=== PATIENT | female | born 1940 | race Caucasian/White ===

== ENCOUNTER 2024-10-14 00:49 | Inpatient (IN) | payer SELFPAY ==
[~2024-10-14] VITALS: Ht 162.6 cm; Wt 62.3 kg
[2024-10-14] MEDS ORDERED: NS 1,000 ML IV SCH ×2 (01:05)
[2024-10-14 01:25] LABS: BASOPHILS ABSOLUTE AUTO 0.09 K/mm3 (0.00-0.23); BASOPHILS PERCENT AUTO 0 % (0-2); EOSINOPHILS ABSOLUTE AUTO 0.09 K/mm3 (0.00-0.68); EOSINOPHILS PERCENT AUTO 0 % (0-6); Hematocrit 36.3 % (33.0-51.0); Hemoglobin 12.1 g/dL (11.5-16.0); IMMATURE GRAN ABSOLUTE AUTO 0.08 K/mm3 (0.00-0.10); IMMATURE GRAN PERCENT AUTO 0 % (0-1); LYMPHOCYTES ABSOLUTE AUTO 1.59 K/mm3 (0.84-5.20); LYMPHOCYTES PERCENT AUTO 8 % (21-46); MONOCYTES PERCENT AUTO 6 % (4-13); Mean Corpuscular HGB 31.6 pg (26.0-34.0); Mean Corpuscular HGB Conc 33.3 g/dL (31.5-36.5); Mean Corpuscular Volume 95 fL (80-100); Mean Platelet Volume 9.5 fL (9.1-12.4); NEUTROPHILS ABSOLUTE AUTO 16.99 K/mm3 (1.96-9.15); NEUTROPHILS PERCENT AUTO 85 % (41-73); Platelet Count 288 K/mm3 (150-400); RDW Coefficient Variation 13.9 % (11.7-14.2); RDW Standard Deviation 48.3 fL (35.1-46.3); Red Blood Cell Count 3.83 M/mm3 (3.80-5.20); White Blood Cell Count 20.04 K/mm3 (4.00-11.30)
[2024-10-14 01:47] LABS: Source, Urine Clean Catch
[2024-10-14 01:56] LABS: Bilirubin, Urine Neg (Neg); Blood, Urine 2+ (Neg); Glucose Qualitative, Urine Neg (Neg); Ketones, Urine Neg (Neg); Leukocyte Esterase, Urine 3+ (Neg); Nitrite, Urine Neg (Neg); Protein, Urine 2+ (Neg); Specific Gravity, Urine 1.015 (1.003-1.022); Urobilinogen, Urine NORM (Normal)
[2024-10-14 02:00] LABS: Albumin, Blood 3.3 g/dL (3.4-5.0); Albumin/Globulin Ratio 1.1 (0.8-1.8); Bilirubin, Total 0.5 mg/dL (0.1-1.0); Bun/Creatinine Ratio 29.5 (12.0-20.0); Calcium, Blood 8.9 mg/dL (8.5-10.1); Creatinine, Blood 1.49 mg/dL (0.40-1.00); Magnesium, Blood 2.8 mg/dL (1.6-2.4); Potassium, Blood 4.4 mmol/L (3.5-5.5); Total Protein, Blood 6.3 g/dL (6.4-8.2)
[2024-10-14 02:03] LABS: Appearance, Urine Turbid (Clear); Color, Urine Yellow (P-Yellow)
[2024-10-14 02:05] LABS: Bacteria Many /hpf; Red Blood Cells, Urine 0-2 /hpf (0-2); Squamous Epithelial Cells Few /hpf (Few); White Blood Cells, Urine TNTC /hpf (0-5)
[2024-10-14 02:13] LABS: U Amphetamine Screen Not Detected; U Barbituate Screen Not Detected; U Benzodiazapine Screen Not Detected; U Buprenorphine Screen Not Detected; U Cannabinoids Screen Not Detected; U Cocaine Screen Not Detected; U Methadone Screen Not Detected; U Methamphetamine Screen Not Detected; U Opiates Screen Not Detected; U Oxycodone Screen Not Detected; U Phencyclidine Screen Not Detected
[2024-10-14] MEDS ORDERED: CefTRIAXone Sodium 2,000 MG in NS 100 ML IV ONE (02:15)
[2024-10-14] MEDS ORDERED: Loperamide HCl 2 MG Cap PO PRN (04:05)
[2024-10-14 05:17] LABS: BASOPHILS ABSOLUTE AUTO 0.05 K/mm3 (0.00-0.23); BASOPHILS PERCENT AUTO 0 % (0-2); EOSINOPHILS ABSOLUTE AUTO 0.07 K/mm3 (0.00-0.68); EOSINOPHILS PERCENT AUTO 0 % (0-6); Hematocrit 33.9 % (33.0-51.0); Hemoglobin 11.2 g/dL (11.5-16.0); IMMATURE GRAN ABSOLUTE AUTO 0.08 K/mm3 (0.00-0.10); IMMATURE GRAN PERCENT AUTO 1 % (0-1); LYMPHOCYTES ABSOLUTE AUTO 0.51 K/mm3 (0.84-5.20); LYMPHOCYTES PERCENT AUTO 3 % (21-46); MONOCYTES PERCENT AUTO 7 % (4-13); Mean Corpuscular HGB 31.5 pg (26.0-34.0); Mean Corpuscular Volume 96 fL (80-100); Mean Platelet Volume 9.8 fL (9.1-12.4); NEUTROPHILS ABSOLUTE AUTO 14.92 K/mm3 (1.96-9.15); NEUTROPHILS PERCENT AUTO 89 % (41-73); Platelet Count 246 K/mm3 (150-400); RDW Coefficient Variation 13.8 % (11.7-14.2); RDW Standard Deviation 48.7 fL (35.1-46.3); Red Blood Cell Count 3.55 M/mm3 (3.80-5.20); White Blood Cell Count 16.83 K/mm3 (4.00-11.30)
[2024-10-14 05:25] VITALS: BP 136/58
[2024-10-14 05:37] LABS: Bun/Creatinine Ratio 32.2 (12.0-20.0); Creatinine, Blood 1.18 mg/dL (0.40-1.00); Potassium, Blood 4.2 mmol/L (3.5-5.5)
[2024-10-14] MEDS ORDERED: LISI20 PO (05:50)
[2024-10-14] MEDS ORDERED: FUROSEMIDE20 MG PO (05:50)
[2024-10-14] MEDS ORDERED: LEVETIRACETAM50014 PO (05:51)
[2024-10-14] MEDS ORDERED: DILTIAZEM 24HR360 MG PO (05:51)
[2024-10-14] MEDS ORDERED: TAMSULOSIN HCL0.4 M1 PO (05:52)
[2024-10-14] MEDS ORDERED: NEURONTIN300 MG PO (05:53)
[2024-10-14] MEDS ORDERED: MULTI-VITAMIN1 EAC2 PO (05:54)
--- NOTE | 2024-10-14 07:08 | NUR ---
PT ADMITTED TO ROOM 364. PT SLIDE TRANSFERRED TO BED. PT HAS TENDERNESS TO HER ABDOMEN. PERCUSSION TO ABDOMEN DEMONSTRATES HOLLOW SOUNDS THROUGHOUT. PT DENIES BURPING OR FLATUS. HAS HAD LOOSE BM. ORDER RECEIVED FOR STOOL STUDIES. PT'S IN ROOM. PT GOOD HISTORIAN. WILL CONTINUE TO MONITOR PT, AND WILL REPORT OFF TO ONCOMING RN.
[2024-10-14] MEDS ORDERED: NS 250 ML IV PRN (07:50)
[2024-10-14 08:31] VITALS: BP 129/58
[2024-10-14] MEDS ORDERED: Lactobacil 2-S.Thermo-Bifido 1 1 Cap PO SCH (09:00)
[2024-10-14 12:40] LABS: Campylobacter Sp Not Detected (NOT DETECT)
[2024-10-14 12:41] LABS: Adenovirus F 40/41 Not Detected (NOT DETECT); Astrovirus Not Detected (NOT DETECT); Cryptosporidium Not Detected (NOT DETECT); Cyclospora Cayetanensis Not Detected (NOT DETECT); E. Coli O157 Not Detected (NOT DETECT); Entamoeba Histolytica Not Detected (NOT DETECT); Enteroaggregative E. coli-EAEC Not Detected (NOT DETECT); Enteropathogenic E. coli-EPEC Not Detected (NOT DETECT); Enterotoxigenic E. coli-ETEC Not Detected (NOT DETECT); Giardia Lamblia Not Detected (NOT DETECT); Norovirus GI/GII Not Detected (NOT DETECT); Plesiomonas Shigelloides Not Detected (NOT DETECT); Rotavirus A Not Detected (NOT DETECT); Salmonella Sp Not Detected (NOT DETECT); Sapovirus Not Detected (NOT DETECT); Shiga Toxin-prod E. coli-STEC Not Detected (NOT DETECT); Shigella/Enteroin E. coli-EIEC Not Detected (NOT DETECT); Vibrio Cholerae Not Detected (NOT DETECT); Vibrio Sp Not Detected (NOT DETECT); Yersinia Enterocolitica Not Detected (NOT DETECT)
[2024-10-14] MEDS ORDERED: LEVE500 (15:14)
[2024-10-14] MEDS ORDERED: SERT100 (15:14)
[2024-10-14] MEDS ORDERED: MetroNIDAZOLE 500MG/NS 100 ml 100 ML IV SCH (16:08)
[2024-10-14 17:48] VITALS: BP 131/63
--- NOTE | 2024-10-14 17:52 | NUR ---
STOOL RULE OUT CAME BACK NEGATIVE CONTACT ISO CANCELLED.
--- NOTE | 2024-10-14 18:12 | NUR ---
ASSUMED CARE OF PATIENT FROM ROOM 364 TO ROOM 344. ATTEMPTED TO CALL ALANA OF [facility]; NUMBER LISTED STATES "CANNOT BE ALLOCATED." PATIENT SETTLED IN ROOM, SALINE LOCKED, SLEEPING; RESP EVEN AND UNLABORED MOUTH BREATHING SNORING. NO SIGNS OR SYMPTOMS OF DISTRESS. PLAN OF CARE ONGOING.
--- NOTE | 2024-10-14 18:19 | NUR ---
SHIFT SUMMARY PT MOVED TO ROOM 344 FROM 364 AT 1810. THIS RN GAVE REPORT TO JED HAMMONDS. PT A&O TO SELF ONLY, CONFUSED, AND IMPULSIVE. PT ATTEMPTED TO AMB OOB UNSAFELY T/O SHIFT. VSS, VOIDING LOOSE STOOLS, AND DENIED PAIN. GI PANEL PENDING. PT REFUSED BREAKFAST AND LUNCH. ATTEMPT TO CALL AND SON TO NOTIFY UNSUCCESSFUL. PHONE # FOR NOT AVAILABLE AND SON'S # WENT TO . JED HAMMONDS TO ASSUME CARE OF PT.
--- NOTE | 2024-10-14 18:41 | NUR ---
THIS RN NOTIFIED OF PT HAVING 2-3 SHADES DECKHAND SPONGE BOAT THAN MAROON COLORED BLOOD COMING OUT OF HER RECTUM. PER PROVIDER, ORDER RECEIVED FOR AM CBC.
--- NOTE | 2024-10-14 18:45 | NUR ---
UPON CHANGING PATIENT'S BRIEF SHE COMPLAINED OF HER ABDOMEN HURTING. PT STATES THAT WHY SHE CAME TO THE HOSPITAL. TENDERNESS AND DISTENTION NOTED. ABD CT REVIEWED AND AWARE OF FINDINGS.
[2024-10-14 19:42] VITALS: BP 124/72
[2024-10-14] MEDS ORDERED: CefTRIAXone Sodium 1,000 MG in NS 100 ML IV SCH (21:00)
--- NOTE | 2024-10-15 03:06 | NUR ---
SHIFT SUMMARY PATIMAUREEN HAS HAD A RESTLESS NIGHT. SHE HAS HAD 2 EPISODES OF DIARRHEA AND IS CONCERNED ABOUT WHERE HER IS. SHE IS CONFUSED AND FORGETS THAT SHE IS IN THE HOSPITAL. IV ABX HAVE INFUSED WITHOUT COMPLICATIONS. BED ALARM IS ON SAFETY PRECAUTIONS ARE BEING MAINTAINED.
[2024-10-15 06:01] VITALS: BP 144/58
[2024-10-15 06:33] LABS: Hematocrit 32.9 % (33.0-51.0); Hemoglobin 11.3 g/dL (11.5-16.0); Mean Corpuscular HGB 32.1 pg (26.0-34.0); Mean Corpuscular HGB Conc 34.3 g/dL (31.5-36.5); Mean Corpuscular Volume 94 fL (80-100); Mean Platelet Volume 9.4 fL (9.1-12.4); Platelet Count 195 K/mm3 (150-400); RDW Coefficient Variation 14.4 % (11.7-14.2); RDW Standard Deviation 49.1 fL (35.1-46.3); Red Blood Cell Count 3.52 M/mm3 (3.80-5.20); White Blood Cell Count 15.79 K/mm3 (4.00-11.30)
[2024-10-15 06:43] LABS: Calcium, Blood 7.9 mg/dL (8.5-10.1); Creatinine, Blood 0.97 mg/dL (0.40-1.00)
[2024-10-15] MEDS ORDERED: Meropenem 1,000 MG in NS 100 ML IV SCH (08:10)
[2024-10-15] MEDS ORDERED: Acetaminophen 325 MG TABLET PO PRN (11:50)
--- NOTE | 2024-10-15 16:55 | NUR ---
PT CONTINUES TO C/O PAIN IN ABD. ABD CONTINUES TO BE ROUND AND FIRM. TYLENOL HELPED SOME, BUT NOT MUCH. CALLED DR TRAN. ORDERS: NPO, HE TO CONTACT DR HAYES. CONSULT. REMOVED PT H2O FROM ROOM.
[2024-10-15 17:18] VITALS: BP 145/73
[2024-10-15] MEDS ORDERED: FentaNYL Citrate 50 MCG/ML 2 ML Injection IV PRN (18:00)
[2024-10-15] MEDS ORDERED: FentaNYL Citrate 50 MCG/ML 2 ML Injection IV ONE (18:00)
[2024-10-15] MEDS ORDERED: Magnesium Oxide 400 MG Tab PO SCH (19:00)
--- NOTE | 2024-10-15 19:16 | NUR ---
PT PLEASANT TODAY. A/O X2-3 T/O DAY. SOME IRRITABLE WITH HUSB AT TIMES. DID C/O PAIN IN ABD THIS AM, CALLED AND RECEIVED TYLENOL THIS NOON TIME. HELPED SOME. SHE C/O PAIN AGAIN THIS HEIDY. DR ORDERED NPO WITH CONSULT TO DR HAYES. ALSO ORDERED FENTANYL. GAVE. PT STATES SOME BETTER. STILL ABD FIRM, ROUND. TENDER. HUSB AT BEDSIDE. PT HAD MULT SOFT UNFORMED LOOSE STOOLS. NO OTHER CONCERNS NOTED. BED IN LOW POSITION, CALL LITE IN REACH, BED ALRAM ON FOR SAFETY
[2024-10-15 20:09] VITALS: BP 154/67
--- NOTE | 2024-10-16 03:36 | NUR ---
SHIFT SUMMARY PATIENT HAS HAD A RESTLESS NIGHT. SHE HAS BEEN UP MULTIPLE TIMES WITH SMALL AMOUNTS OF BROWN DIARRHEA. SHE GETS SOB WITH EXERTION. HAS REMAINED AT THE BEDSIDE. VITAL SIGNS HAVE REMAINED STABLE. PATIENT IS NOT FORGETFUL WITH HER IN THE ROOM. SHE IS NPO PER DR HAYES. SHE HAS MOUTH SWABS FOR COMFORT. PATIENT HAS HER CALL LIGHT WITHIN REACH AND HER BED ALARM IS SET. SAFETY PRECAUTIONS ARE BEING MAINTAINED.
[2024-10-16 06:26] LABS: Mean Corpuscular HGB 30.8 pg (26.0-34.0); Mean Corpuscular HGB Conc 33.3 g/dL (31.5-36.5); Mean Corpuscular Volume 92 fL (80-100); Mean Platelet Volume 9.4 fL (9.1-12.4); Platelet Count 204 K/mm3 (150-400); RDW Coefficient Variation 14.2 % (11.7-14.2); RDW Standard Deviation 48.3 fL (35.1-46.3); Red Blood Cell Count 3.57 M/mm3 (3.80-5.20); White Blood Cell Count 13.82 K/mm3 (4.00-11.30)
[2024-10-16 06:51] LABS: Bun/Creatinine Ratio 33.4 (12.0-20.0); Calcium, Blood 8.9 mg/dL (8.5-10.1); Creatinine, Blood 0.72 mg/dL (0.40-1.00); Potassium, Blood 3.8 mmol/L (3.5-5.5)
[2024-10-16 07:52] VITALS: BP 177/83
--- NOTE | 2024-10-16 08:00 | NUR ---
RN REPORT FROM NITE RN STATES PT SPOUSE UP LAST NITE A LOT BETWEEN 2-6 AM. STATES HUSB WALKED OUT TO HALLWAY WITH ONLY A SHIRT ON, NO COVERING ON PANTS AREA. SPOUSE WAS CONFUSED, NOT REDIRECTABLE. NOT KNOWING WHAT WAS HAPPENING. PT ALSO CONFUSED AT SAME TIME. PT HAD CALLED HER DAUGHTER IN [place], GOT ANGRY WITH CALL AND HUNG UP ON HER. IT APPEARED HE WAS CONFUSED FOR SEVERAL HOURS THIS EARLY AM. SPOUSE LEFT ROOM AND WENT DOWNSTAIRS. WAS BROUGHT BACK TO ROOM BY SECURITY. I REPORTED TO DR TRAN. I CALLED SON IN [facility]. REPORTED MY UNDERSTANDING OF HAPPENINGS LAST NIGHT. HE AGREES TO COME AND INTERVENE AND TAKE HIM HOME TO [place].
[2024-10-16] MEDS ORDERED: Psyllium 1 EA Pack PO SCH (09:00)
--- NOTE | 2024-10-16 16:59 | NUR ---
PT PLEASANT BUT CONFUSED TODAY. CONTINUES TO BE ANXIOUS. SON CAME TO ROOM AND PICKED UP SPOUSE AND WENT BACK TO [place] TODAY. PT HAS BEEN IN HALLWAY WALKING SOME. AMBULATING ABOUT ROOM. PT STRENGTH IMPROVING. PASSING SOFT STOOL, NO HARD CLUMPS NOTED. NO OTHER NEW CONCERNS NOTED. BED IN LOW POSITION, CALLLITE IN REACH, BED ALARM ON FOR SAFETY
[2024-10-16 17:43] VITALS: BP 181/104
--- NOTE | 2024-10-16 17:51 | NUR ---
BP ELEVATED, CALLED DR TRAN, HE WILL REVIEW MEDS AND MAKE ORDERS.
[2024-10-16 18:02] VITALS: BP 197/89
[2024-10-16] MEDS ORDERED: HydrALAZINE HCl 20 MG / ML 1ML Vial IV PRN (18:25)
[2024-10-16] MEDS ORDERED: LevETIRAcetam 500 MG Tab PO SCH (19:00)
[2024-10-16] MEDS ORDERED: Sertraline HCl 100 MG Tab PO SCH (19:00)
[2024-10-16] MEDS ORDERED: Lisinopril 20 MG Tab PO SCH (19:00)
[2024-10-16 19:52] VITALS: BP 152/74
[2024-10-16] MEDS ORDERED: Gabapentin 300 MG Cap PO SCH (21:00)
[2024-10-16] MEDS ORDERED: OLANZapine 10 MG Vial IM PRN (22:45)
--- NOTE | 2024-10-17 03:49 | NUR ---
SHIFT SUMMARY PATIET APPEARS TO BE SLEEPING COMFORTABLY AT THIS TIME. BREATHS ARE EVEN AND UNLABORED. SHE HAD A PERIOD OF CONFUSION. SHE WAS COMBATIVE AND UNCOOPERATIVE AND WOULD NOT STAY IN HER ROOM. MD WAS NOTIFIED AND 5 MG OF IV ATIVAN WAS ORDERED AND ADMINISTERED. PATIENT HAS BEEN UP TO THE BATHROOM SINCE THEN BUT IMMEDIATELY WENT BACK TO BED AND WENT BACK TO SLEEP. HER BED ALARM IS SET. SAFETY PRECAUTIONS ARE BEING MAINTAINED. VSS
--- NOTE | 2024-10-17 07:22 | NUR ---
ASSUMPTION OF CARE: THIS RN ASSUMED CARE OF PATIENT. AWAKE DURING SHIFT CHANGE REPORT, AGITATED AND EXIT-SEEKING. 1:1 SITTER IN DOORWAY. PATIENT STATING SHE IS WRITING A PLAY IN HER HEAD FOR WHEN SHE HAS US ALL ARRESTED FOR KIDNAPPING. ASSURED SAFETY. BREATHING EVEN AND UNLABORED ON ROOM AIR. BED IN LOWEST POSITION. CALL LIGHT WITHIN REACH. ACUTE NEEDS MET. CONTINUES TO SIT ON COMMODE NEAR DOOR.
[2024-10-17] MEDS ORDERED: Sennosides 8.6 MG Tab PO SCH (09:00)
[2024-10-17] MEDS ORDERED: Multivitamins/Minerals TAB PO SCH (09:00)
--- NOTE | 2024-10-17 11:56 | NUR ---
PATIENT VERY NONCOMPLIANT c ASSESSMENT. REFUSED LABS. REFUSED PO MEDS. DID ALLOW FOR IV MEDICATIONS.
[2024-10-17] MEDS ORDERED: Ketorolac Tromethamine 15mg Vial IV PRN (12:05)
[2024-10-17 15:25] VITALS: BP 182/93
[2024-10-17 16:35] LABS: Hematocrit 32.5 % (33.0-51.0); Hemoglobin 11.2 g/dL (11.5-16.0); Mean Corpuscular HGB 31.6 pg (26.0-34.0); Mean Corpuscular HGB Conc 34.5 g/dL (31.5-36.5); Mean Corpuscular Volume 92 fL (80-100); Mean Platelet Volume 9.9 fL (9.1-12.4); Platelet Count 254 K/mm3 (150-400); RDW Coefficient Variation 13.9 % (11.7-14.2); RDW Standard Deviation 47.5 fL (35.1-46.3); Red Blood Cell Count 3.54 M/mm3 (3.80-5.20); White Blood Cell Count 9.85 K/mm3 (4.00-11.30)
[2024-10-17 17:13] LABS: Bun/Creatinine Ratio 28.8 (12.0-20.0); Calcium, Blood 8.8 mg/dL (8.5-10.1); Creatinine, Blood 0.66 mg/dL (0.40-1.00); Potassium, Blood 3.9 mmol/L (3.5-5.5)
--- NOTE | 2024-10-17 17:33 | NUR ---
CALL FROM PATIENT'S SON, ANA: HE WILL BE HERE TO GET HER AT [address]. CALL TO [address] TRAN WHO STATED HE HAS LEFT DC INFO FOR DR. WADE, WHO WILL BE ON TOMORROW. PHARMACY: [facility] [id number] [address] [place] [address]
--- NOTE | 2024-10-17 18:20 | NUR ---
END OF SHIFT SUMMARY: ALERT. ORIENTED TO SELF AND PERSON; NOT PLACE AND SITUATION. COOPERATIVE WITH SOME CARE; DECLINED PO MEDS, BUT ACCEPTED IV ABx. AFTER SOME CONVINCING. PARANOID WITH 1:1 SITTER AND THIS RN; SUSPICIOUS OF ANY QUESTIONS ASKED. CONTINENT OF BOWEL AND BLADDER. AMBULATES INDEPENDENTLY; STAFF ENCOURAGING USE OF FWW. NO C/O PAIN OR DISCOMFORT. ANTICIPATE DC TOMORROW WHEN SON COMES DOWN FROM [place] TO HELP HER AND BACK TO [place]. PLAN FOR DISCHARGE AT 1000. BED IN LOWEST POSITION, CALL LIGHT WITHIN REACH, ALL NEEDS MET. REPORT TO ONCOMING NURSE.
[2024-10-17 19:33] VITALS: BP 184/90
[2024-10-17] MEDS ORDERED: Cefuroxime Axetil 250 MG Tab PO SCH (21:00)
[2024-10-17 21:03] VITALS: BP 149/92
[2024-10-18 03:58] VITALS: BP 143/71
--- NOTE | 2024-10-18 04:34 | NUR ---
SUMMARY: PT A/O TO SELF AND PERSON BUT REQUIRES REMINDERS TO SITUATION/PLACE. SHE ENDORSES NEEDS APPROPRIATELY AND IS UP AD CHRISTEL. SITTER WAS PRESENT FOR SAFETY AND IMPULSIVITY BUT WAS DC'D D/T GAIT NOW MUCH STEADIER AND PT PLEASANT AND COOPERATIVE W/CARE. NO PRN ANXIETY/AGGITATION MEDS WERE REQUIRED. PRN HYDRALAZINE WAS GIVEN FOR SBP 180'S AT BEGINNING OF SHIFT AND IT'S SINCE IMPROVED. ORAL ABX RECEIVED PER EMAR. NO ACUTE CHANGES, VSS/AFEBRILE. PLAN IS FOR D/C HOME THIS AM W/SON AT 1000. WILL REPORT TO DAY RN.
--- NOTE | 2024-10-18 07:22 | NUR ---
ASSUMPTION OF CARE: THIS RN ASSUMED CARE OF PATIENT FOR SECOND DAY. AWAKE DURING SHIFT CHANGE REPORT, UP AND GETTING DRESSED IN ANTICIPATION OF SON PICKING HER UP AT 1000. BED IN LOWEST POSITION. CALL LIGHT WITHIN REACH. ACUTE NEEDS MET.
[2024-10-18 07:29] VITALS: BP 153/84
[2024-10-18] MEDS ORDERED: VISBIOME 112.51 EACH PO (11:36)
[2024-10-18] MEDS ORDERED: CEFU500T30 PO (11:36)
--- NOTE | 2024-10-18 11:56 | NUR ---
DISCHARGE SUMMARY: A&Ox304. PLEASANT AND COOPERATIVE c CARE. AWAKE AND MOVING ABOUT ROOM AT BEGINNING OF SHIFT, AWAITING ARRIVAL OF FAMILY FOR DISCHARGE. PLEASANT AND COOPERATIVE c CARE. ACCEPTED ALL MEDS AND TREATMENTS TODAY. CONTINENT OF BOWEL AND BLADDER. AMBULATES INDEPENDENTLY; STAFF ENCOURAGING USE OF FWW. NO C/O PAIN OR DISCOMFORT. IV REMOVED. MEDS FAXED TO [facility]. HOME MEDS IN PILL SEPARATOR LEFT IN DRAWER; WILL DISPOSE. PATIENT LEFT c FAMILY VIA [facility] AT 1145.
[2024-10-19 13:37] LABS: OVA AND PARASITE,FECAL INTERP Negative (Negative)
== END 2024-10-18 11:55 | disposition home or self-care (01) | DRG 872 ==
LOC: ER 00:49 → MEDS 00:50 → ENPENDDIS 10-18 11:28 → MEDS 10-18 11:55
PROVIDERS: Emergency Medicine; Family Medicine; Internal Medicine; ADMIT Internal Medicine
DX: A41.9 Sepsis, unspecified organism (principal); N39.0 Urinary tract infection, site not specified; N17.9 Acute kidney failure, unspecified; S36.113A Laceration of liver, unspecified degree, initial encounter; F03.911 Unspecified dementia, unspecified severity, with agitation; F05 Delirium due to known physiological condition; R65.20 Severe sepsis without septic shock; G40.909 Epilepsy, unspecified, not intractable, without status epilepticus; B96.20 Unspecified Escherichia coli [E. coli] as the cause of diseases classified elsewhere; B95.4 Other streptococcus as the cause of diseases classified elsewhere; K59.09 Other constipation; K52.9 Noninfective gastroenteritis and colitis, unspecified; I48.91 Unspecified atrial fibrillation; Z79.811 Long term (current) use of aromatase inhibitors; Z87.19 Personal history of other diseases of the digestive system; Z79.899 Other long term (current) drug therapy
CPT/HCPCS: 36415; 51701; 70450; 71275; 72125; 74019; 74174; 80048; 80053; 80320; 81001; 83605; 83690; 83735; 84484; 85025; 85027; 87040; 87077; 87086; 87177; 87186; 87209; 87507; 93005; 93010; 96365-59; 96366; 96367; 96376; 99285-25; A9270; G0378; J0360; J0696; J2185; J3010; J7030; J7050; Q9967